=== PATIENT | female | born 1965 | race Caucasian/White ===

== ENCOUNTER 2023-12-05 09:00 | Outpatient (RCR) | payer OTHER, SELFPAY ==
--- NOTE | 2023-11-03 07:23 | HP.OTEVAL_ITS ---
Patient's Visit Information Visit Information Visit Information: MAURICE RIGGS is a 58 year old F, referred to Occupational Therapy by JOSHUA Guzman, with a diagnosis of L intra artic distal radius fx.. Date of Evaluation: 11/02/23 Occupational Therapist: Elinor Bernstein, AMMY/Sigifredo, CHT Subjective Subjective: This 58 year old female was seen for OT eval with dx of left intra- articulation distal radius with ulna styloid fx. pt states she went to urgent care due to fall. DOI fall 2023 DOS 2023. pt states she had brace 2 weeks out from sx. Pt had out of town visit with her dtr and grandson. Pt states she did fine. Arrives for OT eval to improve her ROM and use of left hand with ADLs and IADls. pt arrives 4 weeks and 5 days s/p from a ORIF of distal radius fx. with brace on fingers swollen and demo with limited ROM. pt works at [employer] and is currently off work. ADLs Comments: pt is right hand pt works a [employer] unable to perform ADLs and IADLs without help from family Pain left wrist/hand: Current Pain Intensity: 4 Pain Intensity Range: 2 and 7 ROM Forearm: supination/pronation WNL left supination 0* Pronation 40* Wrist: right 65/60 left 0/15 PIP: Left IF 0/60 MF 0/65 RF 0/60 LF 0/50 ROM Comments: pt demo with limited MCP and PIP ROM pt is 2.5 away form composite fist pt demo with left thumb IP flex possible scar adhesion (pt to sensitive to allow touch and needed to lay down as she reports she struggles with passing out with) Strength Diagram Clerk: right 50# left NT Lateral Pinch: right 16# left NT Tripod Pinch: right 12# left NT Strength Comments: will test left at later date Sensation Sensation Comments: pt reports tingling sensation in tips of fingers reports hyper sensitivity of hand Quick DASH-Disab of Arm,Shoulder& Hand Quick DASH Score: 80.0000 Goals Goal:100% adherence to protocol: Yes Comment: ORIF guidelines Goal:Daily scar massage when approriate: Yes Goal:ROM equal to unaffected hand: Yes Goal:Diagram Clerk/Pinch strength at least 75% of unaffected hand: Yes Goal:No pain with affected hand use: Yes Goal:Full use of affected hand in daily activities including work: Yes Goal:Decrease scar hypersensitivity: Yes Rehabilitation General Assessment: Pt arrives 4 weeks and 5 days s/p from a left ORIF. Pt demo with edema, limited wrist and digit ROM. Pt is unable to perform ADLs or IADLs at this time. Pt would benefit from skilled OT services 2-3x week for 12 weeks to return pt to her PLOF. Today therapist ed. pt on scar mtg, initiation of weaning from her wrist brace, AROM of forearm, wrist and digits. pt was given handout on ex. Pt did need to lay down due to Feeling of I may pass out' and states she was nervous about starting therapy. Pt will need reassurance on progression. Therapist ed. pt on why would choose ORIF. ed. pt on stability and now moving to prevent scar adhesions and improver her finger and wrist ROM. pt demo understanding and agree to POC. Rehabilitation Potential: Good Anticipated Interventions Anticipated Interventions: A/AAROM/PROM, Strengthening, Edema Control, Triggerpoint Release, Desensitization, Sensory Retraining, Modalities, Orthoses, Joint Protection/Energy Conservation, Ergonomic Education, Fine Motor Coord/Casa, ADL Training, Education re assistive Equipment, Education re Diagnosis and Home Program Visit Plan Frequency: 2-3x /Week Duration: 3 Months TEXT: Thank you for the opportunity to evaluate your patient. For Medicare and Medicare HMO plans, please review the plan of care and approve it. It will need to be FAXED BACK to us at [phone] for Medicare purposes. Please let me know if there are questions or concerns regarding this plan of care. Physician Signature: Date:
--- NOTE | 2023-11-22 11:03 | HP.OTREVAL ---
Re-Evaluation Intro: JOSHUA Guzman, It has been my pleasure to treat MAURICE RIGGS over the last 7 visits for L intra artic distal radius fx.. Please see the progress note below for an update on the occupational therapy plan of care! Subjective Subjective: pt arrives to session 7 weeks and 5 days s/p from a left distal radius fx with ORIF. Pt struggling with hyper sensitivity- swelling and ROM of digits and forearm - pt states she feels her hand and wrist is much better. Objective Objective/Function: pt continues to struggle with vasovagal symptoms with therapy- needs to perform ex. while supine on inclined mat table- therapist has not been able to perform PROM due to pts vasovagal response- pt demo with scar adhesions to flexors- limiting ROM of wrist/forearm digits. pt demo with guarded position that has affected ROM of her shoulder and elbow as well- forearm supination 10* forearm pronation 40* wrist ROM 0/30 MCP avg. flexion is 45 PIP limited pt unable to form fist- 3.5 away from composite fist pt struggling with AROM pt is doing AROM, AAROM and PROM to her tolerance, blocking ex. to increase functional motion- pt is compliant with HEP and attending therapy sessions. pt would benefit from skilled OT services 2-3x 6 Plan Plan Frequency: 2-3x /Week Duration: 3 Months Visits in this POC: 3 months (2-3x week) Plan: Continue POC: 3 months (2-3x week) Goals Goals Patient Goals: Regain Mobility, Regain Strength, Decrease Pain, Return to Work, Decrease Swelling/Stiffness, Use Hand/Wrist/Arm Normally Again, Be More Independent in ADLS and Decrease Sensitivity Goal:100% adherence to protocol: Yes Goal:Daily scar massage when approriate: Yes Goal:ROM equal to unaffected hand: Yes Goal:Public Health Engineer/Pinch strength at least 75% of unaffected hand: Yes Goal:No pain with affected hand use: Yes Goal:Full use of affected hand in daily activities including work: Yes Goal:Decrease scar hypersensitivity: Yes Anticipated Interventions Anticipated Interventions Anticipated Interventions: A/AAROM/PROM, Strengthening, Edema Control, Triggerpoint Release, Desensitization, Sensory Retraining, Modalities, Orthoses, Joint Protection/Energy Conservation, Ergonomic Education, Fine Motor Coord/Casa, ADL Training, Education re assistive Equipment, Education re Diagnosis and Home Program Re-Evaluation Ending Re-evaluation ending: Please do not hesitate to contact me at [phone] by phone or if you have questions or concerns regarding this new plan of care! Sincerely, Elinor Bernstein, OTR/L, CHT
--- NOTE | 2024-03-22 10:21 | HP.OT.NRP ---
Patient Information Patient Information: MAURICE RIGGS was seen in my office for initial evaluation on 11/02/23. The following Plan of Care was established for this patient: POC Established Initial Frequency: 2-3x /Week Initial Duration: 3 Months Plan: Continue POC: 3 months (2-3x week) Anticipated Interventions Anticipated Interventions: A/AAROM/PROM, Strengthening, Edema Control, Triggerpoint Release, Desensitization, Sensory Retraining, Modalities, Orthoses, Joint Protection/Energy Conservation, Ergonomic Education, Fine Motor Coord/Casa, ADL Training, Education re assistive Equipment, Education re Diagnosis and Home Program Last Seen Last Seen: This patient was last seen in our office 12/05/23. Pertinent comments regarding their Occupational therapy will appear below: pt was seen for 8 OT session- pt has not scheduled further apts and due to time lapse in services pt is d.c at this time. At this point I will be discontinuing this patient from occupational therapy. I would be happy to see this patient again in the future if found appropriate by the physician. Thank you! Elinor Bernstein, OTR/L, CHT
== END 2023-12-05 19:00 | disposition home or self-care (01) ==
LOC: OT 09:00
PROVIDERS: PCP Nurse Practitioner Adult Health; Referring Provider Physician Assistant; Visit Provider Physician Assistant
DX: S52.572D Other intraarticular fracture of lower end of left radius, subsequent encounter for closed fracture with routine healing (principal)
CPT/HCPCS: 97110; 97140; 97166; 97530